=== PATIENT | male | born 1970 | race Caucasian/White ===

== ENCOUNTER → 2021-06-02 | Day surgery (SDC) | payer OTHER ==
[~2021-06-02] MED LIST: BELLADONNA/OPIUM 30 MG SUPP RC ONE; CEFDINIR300 MG PO; CEFTRIAXONE 1 GM VIAL ONE; CYCLOBENZAPRINE5 MG PO; ELIQUIS5 MG PO; IOPAMIDOL 300MG/ML 50ML INFUS..BTL IV ONE; LABETALOL HCL 20 ML ONE; LISINOPRIL10 MG PO; ONDANSETRON HCL 4 MG ORAL DISINTEGRATING TAB ONE; ONDANSETRON ODT8 MG PO; SODIUM CHLORIDE 0.9% 50ML 50 ML ONE; TRAMADOL HCL 50 MG TAB ONE
[2021-06-02 08:34] LABS: BASOPHILS # (AUTO) 0.1 (0.0-0.1); BASOPHILS % 1.1 % (0.0-1.0); EOSINOPHILS # (AUTO) 0.1 (0.0-0.4); EOSINOPHILS % 1.6 % (0.0-6.0); HEMATOCRIT 45.1 % (38.2-49.6); HEMOGLOBIN 16.1 g/dL (14.0-18.0); LYMPHOCYTES # (AUTO) 2.4 (1.0-3.2); LYMPHOCYTES % 33.9 % (18.0-39.1); MEAN CORPUSCULAR HEMOGLOBIN 35.2 pg (28-32); MEAN CORPUSCULAR HGB CONC 35.7 g/dL (31-35); MEAN CORPUSCULAR VOLUME 98.5 fL (81-99); MONOCYTES # (AUTO) 0.5 (0.2-0.8); MONOCYTES % 7.7 % (4.4-11.3); NEUTROPHILS # (AUTO) 3.9 (2.1-6.9); NEUTROPHILS % 55.6 % (38.7-80.0); PLATELET COUNT 185 x10e3/uL (140-360); RED BLOOD COUNT 4.58 x10e6/uL (4.3-5.7); RED CELL DISTRIBUTION WIDTH 14.3 % (11.7-14.4)
[2021-06-02 09:10] LABS: ALBUMIN 4.1 g/dL (3.5-5.0); ALBUMIN/GLOBULIN RATIO 1.3 (0.8-2.0); ANION GAP 15.6 mmol/L (8-16); CALCIUM 9.7 mg/dL (8.4-10.2); CREATININE, SERUM 1.32 mg/dL (0.72-1.25); POTASSIUM 3.6 mmol/L (3.5-5.1)
[2021-06-02] MEDS: FENTANYL CITRATE/PF 100MCG/2 ML INJ ONE (09:28)
[2021-06-02 10:20] VITALS: BP 119/80
== END | disposition home or self-care (01) ==
LOC: OR 05:58
PROVIDERS: ATTEND Urology
DX: N13.2 Hydronephrosis with renal and ureteral calculous obstruction (principal); K42.9 Umbilical hernia without obstruction or gangrene; E66.9 Obesity, unspecified; Z68.37 Body mass index [BMI] 37.0-37.9, adult; Z88.5 Allergy status to narcotic agent; F43.10 Post-traumatic stress disorder, unspecified; K21.9 Gastro-esophageal reflux disease without esophagitis; I10 Essential (primary) hypertension
CPT/HCPCS: 36415; 50590; 52332; 74018; 74420; 80053; 83970; 84550; 85025; 93005; C1758; C1769; C2617; J0696; J3010; J3490; Q0162; Q9967; U0002

== ENCOUNTER 2021-06-08 18:04 | Emergency (ER) | payer OTHER ==
[~2021-06-08] VITALS: Ht 170.2 cm; Wt 108.9 kg
[~2021-06-08 18:04] MED LIST changes: -BELLADONNA/OPIUM 30 MG SUPP RC ONE; -CEFDINIR300 MG PO; -CEFTRIAXONE 1 GM VIAL ONE; -CYCLOBENZAPRINE5 MG PO; -IOPAMIDOL 300MG/ML 50ML INFUS..BTL IV ONE; -LABETALOL HCL 20 ML ONE; -ONDANSETRON HCL 4 MG ORAL DISINTEGRATING TAB ONE; -SODIUM CHLORIDE 0.9% 50ML 50 ML ONE; -TRAMADOL HCL 50 MG TAB ONE
[2021-06-08] MEDS ORDERED: CEFDINIR300 MG PO (20:19)
[2021-06-08] MEDS ORDERED: CYCLOBENZAPRINE5 MG PO (20:19)
[2021-06-08 20:30] VITALS: BP 138/86
== END 2021-06-08 20:30 | disposition home or self-care (01) ==
LOC: FSED 18:23
DX: R10.9 Unspecified abdominal pain (principal); I10 Essential (primary) hypertension; D68.51 Activated protein C resistance
CPT/HCPCS: 74176; 81003; 99282

== ENCOUNTER → 2021-07-02 | Day surgery (SDC) | payer OTHER ==
[~2021-07-02] MED LIST changes: +BELLADONNA/OPIUM 30 MG SUPP RC ONE; +CEFDINIR300 MG PO; +CEFTRIAXONE 1 GM VIAL ONE; +CYCLOBENZAPRINE5 MG PO; +FENTANYL CITRATE/PF 100MCG/2 ML INJ ONE; +GENTAMICIN 80MG/NS 100 ML 200 ML IV ONE; +IOPAMIDOL 300MG/ML 50ML INFUS..BTL IV ONE; +SODIUM CHLORIDE 0.9% 50ML 100 ML ONE; +TRAMADOL HCL 50 MG TAB ONE; +TYLENOL EXTRA500 MG PO
[2021-07-02 14:30] VITALS: BP 143/99
== END | disposition home or self-care (01) ==
LOC: OR 10:46
PROVIDERS: ATTEND Urology
DX: N20.0 Calculus of kidney (principal); Z46.6 Encounter for fitting and adjustment of urinary device; N39.0 Urinary tract infection, site not specified; N13.30 Unspecified hydronephrosis; R80.9 Proteinuria, unspecified; I10 Essential (primary) hypertension; M19.90 Unspecified osteoarthritis, unspecified site; D68.51 Activated protein C resistance; K42.9 Umbilical hernia without obstruction or gangrene; E66.9 Obesity, unspecified; F43.10 Post-traumatic stress disorder, unspecified; F40.8 Other phobic anxiety disorders; Z88.6 Allergy status to analgesic agent; Z01.812 Encounter for preprocedural laboratory examination; Z01.818 Encounter for other preprocedural examination; Z20.822 Contact with and (suspected) exposure to COVID-19; Z79.02 Long term (current) use of antithrombotics/antiplatelets; Z68.37 Body mass index [BMI] 37.0-37.9, adult; Z86.718 Personal history of other venous thrombosis and embolism; Z84.1 Family history of disorders of kidney and ureter
CPT/HCPCS: 52356; 74018; 74420; 88300; C1758; C1766; C1769; C2617; J0696; J1580; J3010; Q9967; U0002

== ENCOUNTER → 2021-09-17 | Day surgery (SDC) | payer OTHER ==
[~2021-09-17] MED LIST changes: -BELLADONNA/OPIUM 30 MG SUPP RC ONE; -CEFTRIAXONE 1 GM VIAL ONE; +DEXAMETHASONE SOD PHOS INJ 4 MG/ML SDV ONE; -IOPAMIDOL 300MG/ML 50ML INFUS..BTL IV ONE; +MIDAZOLAM HCL 2MG/ML ORAL LIQ CUP ONE; +MIDAZOLAM HCL 5 MG/ML VIAL ONE; +ONDANSETRON HCL INJ 2MG/ML 2ML 2 MG/ML VIAL ONE; +POVIDONE IODINE 0.05% 0.05 % ML PO ONE; +SEVOFLURANE INHAL SOLN 250 ML PEN BTL ONE; -SODIUM CHLORIDE 0.9% 50ML 100 ML ONE; -TRAMADOL HCL 50 MG TAB ONE
[2021-09-17 11:35] VITALS: BP 114/76
== END | disposition home or self-care (01) ==
LOC: OR 07:51
PROVIDERS: ATTEND Urology
DX: N20.0 Calculus of kidney (principal); I10 Essential (primary) hypertension; D68.51 Activated protein C resistance; F41.9 Anxiety disorder, unspecified; F43.10 Post-traumatic stress disorder, unspecified; Z88.6 Allergy status to analgesic agent; Z01.810 Encounter for preprocedural cardiovascular examination; Z01.812 Encounter for preprocedural laboratory examination; Z01.818 Encounter for other preprocedural examination; Z20.822 Contact with and (suspected) exposure to COVID-19; Z79.02 Long term (current) use of antithrombotics/antiplatelets; Z79.899 Other long term (current) drug therapy; Z86.718 Personal history of other venous thrombosis and embolism
CPT/HCPCS: 50590; 74018; 93005; J1100; J1580; J2250; J2405; J3010; U0002